=== PATIENT | female | born 2000 | race Caucasian/White ===

== ENCOUNTER 2023-04-17 18:28 | Emergency (ER) | payer BC, SELFPAY ==
[2023-04-17 18:44] VITALS: BP 127/72; PULSE 94; RESP 16; TEMP 36.7; O2SAT 98; BMI 23.7
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
[2023-04-17] MEDS: oxyCODONE-APAP 5-325 mg Tablet 2 TAB PO (21:01)
[2023-04-17 21:05] VITALS: BP 134/87; PULSE 83; RESP 16; O2SAT 100
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
== END 2023-04-17 21:07 | disposition home or self-care (01) ==
PROVIDERS: Emergency Provider Emergency Medicine
DX: S43.102A Unspecified dislocation of left acromioclavicular joint, initial encounter (principal); V86.69XA Passenger of other special all-terrain or other off-road motor vehicle injured in nontraffic accident, initial encounter
CPT/HCPCS: 71045; 73030; 99283